=== PATIENT | male | born 2000 | race Native Hawaiian/Other Pacific Islander ===

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

== ENCOUNTER 2023-04-14 10:28 | Emergency (ER) | payer OTHER ==
[~2023-04-14] VITALS: Ht 185.4 cm; Wt 97.5 kg
[2023-04-14 11:35] VITALS: BP 145/102; TEMP 98.6
== END 2023-04-14 11:35 | disposition home or self-care (01) ==
LOC: ED 10:28
DX: S63.502A Unspecified sprain of left wrist, initial encounter (principal); R03.0 Elevated blood-pressure reading, without diagnosis of hypertension; F17.210 Nicotine dependence, cigarettes, uncomplicated; F19.10 Other psychoactive substance abuse, uncomplicated
CPT/HCPCS: 99282